=== PATIENT | female | born 1985 | race Caucasian/White ===

== ENCOUNTER → 2016-06-01 | Outpatient (REF) | payer OTHER | LOC: M LAB REF 16:13 | PROVIDERS: ATTEND Surgery | DX: N30.01 Acute cystitis with hematuria (principal) ==

== ENCOUNTER → 2016-06-06 | Outpatient (REF) | payer OTHER ==
[2016-06-06 19:54] LABS: MEAN CORPUSCULAR HGB CONC 30.6 g/dl (32.0-36.5); MEAN CORPUSCULAR VOLUME 75.3 fl (80.0-96.0); RED CELL DISTRIBUTION WIDTH 18.2 % (11.5-14.5); WHITE BLOOD COUNT 9.2 K/mm3 (4.0-10.0)
== END | disposition home or self-care (01) ==
LOC: M LABDRAW1 17:25
PROVIDERS: ATTEND Nurse Practitioner Family
DX: D64.9 Anemia, unspecified (principal)

== ENCOUNTER → 2016-09-07 | Outpatient (REF) | payer OTHER | LOC: M LAB REF 16:52 | DX: J02.9 Acute pharyngitis, unspecified (principal) ==

== ENCOUNTER → 2017-07-21 | Outpatient (REF) | payer OTHER ==
[2017-07-21 22:54] LABS: INFLUENZA A AMPLIFICATION NEGATIVE (NEGATIVE); INFLUENZA B AMPLIFICATION NEGATIVE (NEGATIVE)
== END ==
LOC: M LAB REF 21:28
DX: Z11.59 Encounter for screening for other viral diseases (principal)
CPT/HCPCS: 87502

== ENCOUNTER 2018-07-14 20:24 | Emergency (ER) | payer BC, OTHER ==
[~2018-07-14] VITALS: Ht 165.1 cm; Wt 112.3 kg
[2018-07-14 20:42] VITALS: BP 148/106
[2018-07-14] MEDS ORDERED: ACETAMINOPHEN 325 MG TAB PO ONE (21:00)
[2018-07-14 21:34] LABS: HEMOGLOBIN 13.3 g/dl (12.0-15.5); MEAN CORPUSCULAR HEMOGLOBIN 27.4 pg (27.0-33.0); MEAN CORPUSCULAR HGB CONC 32.4 g/dl (32.0-36.5); MEAN CORPUSCULAR VOLUME 84.4 fl (80.0-96.0); PLATELET COUNT, AUTOMATED 390 10^3/uL (150-450); RED BLOOD COUNT 4.86 10^6/uL (4.00-5.40); WHITE BLOOD COUNT 9.9 10^3/uL (4.0-10.0)
--- NOTE | 2018-07-14 22:40 | REPVR ---
EXAM: US First Trimester, Transabdominal EXAM DATE/TIME: 07/14/2018 9:13 PM CLINICAL HISTORY: 32 years old, female; Signs and symptoms; Lmp or gestational age (in weeks): 9w 5 d; Other: Vaginal bleeding; ; Additional info: Pelvic pain/bleeding; Lmp- 05/07/18 TECHNIQUE: Imaging protocol: Real-time transabdominal obstetrical ultrasound of the maternal pelvis and a first trimester , less than 14 weeks 0 days, with image documentation. COMPARISON: No relevant prior studies available. FINDINGS: GESTATION: Gestation: Gestational sac in the lower uterine segment with pole. Heart rate: No heartbeat is identified. BIOMETRY: Estimated gestational age: Composite age is 7 weeks 2 days. Mean sac diameter: Mean sac size is 19 mm suggesting an age of 6 weeks 6 days. Boone-Rump length: Boone-rump length of 13 mm suggesting an age of 7 weeks 4 days. MATERNAL: Uterus: The uterus measures 11.0 cm in its cephalocaudad dimension and 6.2 cm in its AP dimension transabdominal. The uterus measures 10.8 cm in its cephalocaudad dimension and 5.8 x 7.9 cm in its AP and lateral dimensions transvaginal. Cervix: Unremarkable. Right adnexa: Unremarkable. Left adnexa: Unremarkable. Intraperitoneal: No significant intraperitoneal free fluid. IMPRESSION: 1. demise with estimated age of 7 weeks 4 days. 2. Gestational sac in the lower uterine segment suggesting AB in progress. Electronically signed by: Rogerio Sarmiento On 07/14/2018 22:40:18 PM
== END 2018-07-14 22:09 | disposition home or self-care (01) ==
LOC: M ED 20:24
DX: O02.1 Missed abortion (principal); Z3A.01 Less than 8 weeks gestation of pregnancy

== ENCOUNTER → 2019-10-22 | Outpatient (REF) | payer OTHER ==
[2019-10-22 13:15] LABS: HEMATOCRIT 35.6 % (36.0-47.0); HEMOGLOBIN 10.6 g/dl (12.0-15.5); MEAN CORPUSCULAR HEMOGLOBIN 22.8 pg (27.0-33.0); MEAN CORPUSCULAR HGB CONC 29.8 g/dl (32.0-36.5); MEAN CORPUSCULAR VOLUME 76.6 fl (80.0-96.0); PLATELET COUNT, AUTOMATED 429 10^3/uL (150-450); RED BLOOD COUNT 4.65 10^6/uL (4.00-5.40); WHITE BLOOD COUNT 7.3 10^3/uL (4.0-10.0)
[2019-10-22 14:19] LABS: HCG, SERUM QUANTITATIVE 9418 MIU/ML
[2019-10-25 08:22] LABS: HEPATITIS B SURFACE ANTIGEN NEGATIVE (NEGATIVE)
[2019-10-25 08:50] LABS: HEPATITIS C VIRUS ABY INDEX 0.1 INDEX (<0.8)
[2019-10-25 08:51] LABS: HIV 1&2 SCREEN CENTAUR NEGATIVE (NEGATIVE)
== END ==
LOC: M LAB REF 12:28
PROVIDERS: ATTEND Obstetrics & Gynecology
DX: O36.80X0 Pregnancy with inconclusive fetal viability, not applicable or unspecified (principal)

== ENCOUNTER → 2019-10-28 | Outpatient (CLI) | payer OTHER ==
--- NOTE | 2019-10-28 10:22 | REP ---
REASON: Supervision of other normal . PRIORS: No pertinent priors. Within the endometrial cavity, there is an anechoic structure with increased echoes surrounding it consistent with a decidual reaction. There is no echogenic material seen within the gestational sac that would be considered consistent with a pole. No yolk sac is identified. Based on the mean gestational sac diameter, the estimated gestational age is 7 weeks 1 day. Doppler interrogation of the gestational sac shows no evidence of cardiac activity. Evaluation of the adnexal spaces showed no evidence of a gross abnormality. IMPRESSION: Early OB ultrasound as described above. Close followup is recommended to identify developing pole. Both transvesical and transvaginal was utilized.
== END ==
LOC: M WHC 08:01
PROVIDERS: ATTEND Obstetrics & Gynecology
DX: O36.80X0 Pregnancy with inconclusive fetal viability, not applicable or unspecified (principal); Z3A.01 Less than 8 weeks gestation of pregnancy

== ENCOUNTER → 2019-10-29 | Outpatient (REF) | payer OTHER | LOC: M LAB REF 12:46 | PROVIDERS: ATTEND Obstetrics & Gynecology | DX: O03.4 Incomplete spontaneous abortion without complication (principal) ==

== ENCOUNTER → 2020-06-09 | Outpatient (REF) | payer OTHER ==
[2020-06-09 17:01] LABS: HEMATOCRIT 37.8 % (36.0-47.0); HEMOGLOBIN 11.4 g/dl (12.0-15.5); MEAN CORPUSCULAR HEMOGLOBIN 23.9 pg (27.0-33.0); MEAN CORPUSCULAR HGB CONC 30.2 g/dl (32.0-36.5); MEAN CORPUSCULAR VOLUME 79.2 fl (80.0-96.0); PLATELET COUNT, AUTOMATED 424 10^3/uL (150-450); RED BLOOD COUNT 4.77 10^6/uL (4.00-5.40); WHITE BLOOD COUNT 8.8 10^3/uL (4.0-10.0)
[2020-06-09 17:27] LABS: HEMOGLOBIN A1c 5.4 %
[2020-06-09 18:18] LABS: HCG, SERUM QUANTITATIVE 13606 MIU/ML; HEPATITIS C VIRUS ABY INDEX 0.1 INDEX (<0.8); HIV 1&2 SCREEN CENTAUR NEGATIVE (NEGATIVE); PROGESTERONE 24.07 NG/ML
== END ==
LOC: M LAB REF 15:59
PROVIDERS: ATTEND Obstetrics & Gynecology
DX: O36.80X0 Pregnancy with inconclusive fetal viability, not applicable or unspecified (principal)

== ENCOUNTER → 2020-06-18 | Outpatient (CLI) | payer OTHER ==
--- NOTE | 2020-06-18 09:05 | REP ---
INDICATION: DATING AND VIABILITY. with inconclusive viability. COMPARISON: None. TECHNIQUE: Transabdominal and transvaginal sonography. FINDINGS: There is an intrauterine gestational sac containing a viable single intrauterine embryonic pole. [place]-rump length of the embryonic pole is 1.4 cm corresponding with a gestational age estimate of 7 weeks 5 days. Gestational sac is somewhat smaller than expected, mean sac diameter 6 weeks 6 days. There is a 1.6 x 1.4 cm cyst in the maternal right ovary likely corpus luteum. A 4.8 x 2.6 x 6.4 cm cystic structure is seen medially adjacent to the left ovary question hydrosalpinx versus other adnexal cyst. This is anechoic without mural nodularity. No free fluid is seen. There is also a 1.6 x 1.4 x 1.4 cm paraovarian cyst on the left. There is a 2.1 x 2.0 x 2.0 cm hypoechoic area in the uterine myometrium consistent with a fibroid. heart rate is recorded at 158 beats per minute. IMPRESSION: Viable single intrauterine gestation at 7 weeks 5 days by today's composite sonographic criteria. SNEHA by today's sonography January 30, 2021. No complication identified. Small uterine fibroid. 4.8 x 6.4 x 2.6 cm cystic lesion left adnexa. Smaller bilateral ovarian cysts are also seen. <Electronically signed by Stephen Coker > 06/18/20 [id number]
== END ==
LOC: M WHC 06:29
PROVIDERS: ATTEND Advanced Practice Midwife
DX: O36.80X0 Pregnancy with inconclusive fetal viability, not applicable or unspecified (principal); Z3A.01 Less than 8 weeks gestation of pregnancy

== ENCOUNTER → 2020-07-30 | Outpatient (CLI) | payer OTHER | LOC: M WUC 10:53 | PROVIDERS: ATTEND Advanced Practice Midwife | DX: O99.210 Obesity complicating pregnancy, unspecified trimester (principal) ==

== ENCOUNTER → 2020-11-16 | Outpatient (CLI) | payer OTHER ==
[2020-11-16 12:00] LABS: HEMATOCRIT 36.1 % (36.0-47.0); HEMOGLOBIN 11.6 g/dl (12.0-15.5); MEAN CORPUSCULAR HEMOGLOBIN 27.8 pg (27.0-33.0); MEAN CORPUSCULAR HGB CONC 32.1 g/dl (32.0-36.5); MEAN CORPUSCULAR VOLUME 86.4 fl (80.0-96.0); PLATELET COUNT, AUTOMATED 336 10^3/uL (150-450); RED BLOOD COUNT 4.18 10^6/uL (4.00-5.40); WHITE BLOOD COUNT 9.6 10^3/uL (4.0-10.0)
== END ==
LOC: M WUC 08:56
PROVIDERS: ATTEND Advanced Practice Midwife
DX: Z34.02 Encounter for supervision of normal first pregnancy, second trimester (principal); Z3A.00 Weeks of gestation of pregnancy not specified

== ENCOUNTER → 2020-12-02 | Outpatient (CLI) | payer OTHER | LOC: M LAB 07:24 | PROVIDERS: ATTEND Obstetrics & Gynecology | DX: O99.810 Abnormal glucose complicating pregnancy (principal) ==

== ENCOUNTER → 2020-12-31 | Outpatient (REF) | payer OTHER | LOC: M LAB REF 17:37 | PROVIDERS: ATTEND Obstetrics & Gynecology | DX: Z34.83 Encounter for supervision of other normal pregnancy, third trimester (principal) ==

== ENCOUNTER → 2021-01-06 | Outpatient (CLI) | payer OTHER ==
--- NOTE | 2021-01-07 18:48 | REP ---
INDICATION: PREG, SIZE/DATE DISCREPANCY 3RD TRIMESTER COMPARISON: None. TECHNIQUE: Transabdominal obstetrical ultrasound with color Doppler evaluation. FINDINGS: Examination demonstrates a single live intrauterine in cephalic presentation. motion is identified by technologist. Placenta is noted left lateral and grade 2 without evidence for placenta previa or abruption. Amniotic fluid volume is normal. Cervix measures 3.2 cm in length and appears closed.. Selected gestational age: 36 weeks 4 days with SNEHA 01/30/2021. Gestational age by current measurements 37 weeks 1 day with SNEHA 01/26/2021. FHR equals 146 beats per minute. BPD: 9.3 cm at 37 weeks 6 days HC: 33.8 cm at 38 weeks 5 days AC: 33.5 cm at 37 weeks 3 days FL: 7.0 cm at 36 weeks 0 days HL: 6.1 cm at 35 weeks 3 days HC/AC: 1.01 Estimated weight 3165 grams (74thpercentile). JOHAN: 20.4 cm (7.6-24.6) Umbilical artery SD ratio: 2.89 (1.61-3.47) IMPRESSION: Single live advanced gestation in cephalic presentation demonstrating appropriate estimated weight/growth. <Electronically signed by Jordan Velarde > 01/07/21 [id number]
== END ==
LOC: M RAD 16:09
PROVIDERS: ATTEND Obstetrics & Gynecology
DX: Z36.87 Encounter for antenatal screening for uncertain dates (principal); O26.843 Uterine size-date discrepancy, third trimester; Z3A.36 36 weeks gestation of pregnancy

== ENCOUNTER → 2021-01-07 | Outpatient (REF) | payer OTHER ==
[2021-01-07 20:01] LABS: HEMATOCRIT 34.6 % (36.0-47.0); HEMOGLOBIN 11.4 g/dl (12.0-15.5); MEAN CORPUSCULAR HEMOGLOBIN 27.9 pg (27.0-33.0); MEAN CORPUSCULAR HGB CONC 32.9 g/dl (32.0-36.5); MEAN CORPUSCULAR VOLUME 84.8 fl (80.0-96.0); PLATELET COUNT, AUTOMATED 323 10^3/uL (150-450); RED BLOOD COUNT 4.08 10^6/uL (4.00-5.40)
[2021-01-07 20:23] LABS: ALT/SGPT 14 U/L (12-78); BILIRUBIN,TOTAL 0.2 MG/DL (0.2-1.0); CREATININE FOR GFR 0.64 MG/DL (0.55-1.30); GLOMERULAR FILTRATION RATE > 60.0 (>60); LDH LACTATE DEHYDROGENASE 165 U/L (84-246)
== END ==
LOC: M LAB REF 18:58
PROVIDERS: ATTEND Obstetrics & Gynecology
DX: O14.90 Unspecified pre-eclampsia, unspecified trimester (principal)

== ENCOUNTER → 2021-01-08 | Outpatient (REF) | payer OTHER ==
[~2021-01-08] MED LIST: IBUP80TA PO; PERCOCET PO; PRENTAB9 PO
[2021-01-08 14:42] LABS: CREATININE, URINE 72.5 MG/DL; URINE TOTAL PROTEIN 16.5 MG/DL (0-12)
[2021-01-08 20:25] LABS: CREATININE 24 HOUR, URINE 1377.5 MG/24HR (600-1800); TOTAL PROTEIN 24 HOUR URINE 313.5 MG/24HR (50-150)
== END ==
LOC: M LAB REF 13:48
PROVIDERS: ATTEND Obstetrics & Gynecology
DX: O14.90 Unspecified pre-eclampsia, unspecified trimester (principal)

== ENCOUNTER 2021-01-11 14:42 | Inpatient (IN) | payer OTHER ==
[~2021-01-11] VITALS: Ht 165.1 cm; Wt 131.1 kg
[2021-01-11] VITALS (11 sets, daily range): BP systolic 139–184; BP diastolic 77–114
[2021-01-11] MEDS: miSOPROStol 50MCG 1/2 TABLET PO SCH ×2 (00:12→19:57)
[2021-01-11] MEDS ORDERED: HOME MED LIST COMPLETE! XX SCH (14:55)
[2021-01-11] MEDS ORDERED: PRENTAB9 PO (15:18)
[2021-01-11] MEDS ORDERED: PENICILLIN G POTASSIUM IV 5 MU in D5W MINI-BAG PLUS 100 ML IV STA (15:32)
[2021-01-11] MEDS ORDERED: TRANEXAMIC ACID INJection 1,000 MG in NS 100 ML IV PRN (15:35)
[2021-01-11] MEDS ORDERED: LIDOCAINE 1% MDV 20ML VIAL INFIL PRN (15:35)
[2021-01-11] MEDS ORDERED: OXYTOCIN DRIP 30 UNITS in IV 1 EA IV PRN (15:35)
[2021-01-11] MEDS ORDERED: CARBOPROST TROMETHAMINE 250 MCG/ML AMP IM PRN (15:35)
--- NOTE | 2021-01-11 15:39 | HPEPDOC ---
Obstetrical History & Physical General Date of Admission Jan 11, 2021 at 14:42 Primary Care Physician: DARLINE MOODY CNM History of Present Illness Hortencia is a 35 y.o. female who is a that presents to L & D for IOL at 37 2/7 weeks due to preeclampsia. SNEHA of 01/30/2021 based off of her LMP and consistent with first trimester U/S. No complaints of preeclamptic symtpoms, LOF, decreased movement, vaginal bleeding, or regular or painful uterine contractions. care adequate and received through [facility]. complicated by preeclampsia and morbid obesity. Chief Complaint: Pre-eclamsia, Induction of labor Information Provided By: Patient Age: 35 : 4 Term: 0 Pre-term: 0 Abortions: 3 Livin Care Care: Good Care Dating Final EDC: Jan 30, 2021 Final EDC by: LMP, 1st trimester (US) LMP: Apr 01, 2020 EGA at Admission: 37.2 Antepartum Course Diagnos(e)s preeclampsia Height (inches): 65 Pre- weight (lbs.): 269 Past Medical History OPERATIONS SPECIALIST History: Spontaneous , Uterine fibroids Past Medical History Medical History Morbid obesity Surgical History: Other (left tib/fib fx and repair, age 22) Family History Significant Family History: No pertinent family hx, Noncontributory Family History M & D alive and well, denies any pertinent family hx Social History Marital Status: Single Family situation: Spouse/partner home Psychosocial History: No pertinent psych hx * Smoker: non-smoker Alcohol: rarely (no use with ) Drugs: denies Abuse Violence Screening Have you been hit/kicked/slapp: No Have you been sexually assault: No Imunizations Tdap status: needs Allergies Coded Allergies: No Known Drug Allergies (Verified Allergy, Unknown, 01/11/21) Medications Scheduled No.137/Iron/Folic Acd ( Vitamin Tablet) 1 Each Tablet, 1 TAB PO DAILY Physical Examination Physical Examination GENERAL: Alert and oriented times three. ABDOMEN: Gravid and non-tender to touch. FETUS: Is vertex (VTX) by sterile vaginal examination (SVE), fetus is vertex (VTX) by Ramon. EFW 7 lbs HEART RATE: Regular rate and rhythm. LUNGS: Clear to auscultation (CTA) bilaterally. EXTREMITIES: 1-2+ pitting edema i feet and legs. No clonus. Deep tendon reflexes (DTRs) +2 Vital Signs/I&O Vital Signs Label Value Date Time Patient Temperature 98.3 degrees F 01/11/21 1514 Temperature Source Temporal 01/11/21 1514 Pulse 96 01/11/21 1514 Respiratory Rate 18 bpm 01/11/21 1514 Blood Pressure Assessment 142/100 (114) 01/11/21 1514 Source Automatic Cuff (NIBP) Laboratory Data [facility] Laboratory Tests 2 01/11/21 15:02: Serology Scanned Report Hepatitis B Testing CBC/BMP Item Value Date Time White Blood Count 10.9 10^3/uL H 01/11/21 1653 Red Blood Count 4.14 10^6/uL 01/11/21 1653 Hemoglobin 11.5 g/dl L 01/11/21 1653 Hematocrit 34.9 % L 01/11/21 1653 Mean Corpuscular Volume 84.3 fl 01/11/21 1653 Mean Corpuscular Hemoglobin 27.8 pg 01/11/21 1653 Mean Corpuscular Hemoglobin Concent 33.0 g/dl 01/11/21 1653 Red Cell Distribution Width 14.6 % H 01/11/21 1653 Platelet Count 296 10^3/uL 01/11/21 1653 Urine Culture: No Growth Pertinent Laboratoy Data Blood Type: A+ RBC Antibody Screen: Negative HIV: Negative Hepatitis B: Negative Hepatitis C: Negative Rapid Plasma Reagin: Nonreactive Rubella: Immune Chlamydia/Gonorrhea: Negative Group B Streptococcus: Positive Glucose Tolerance Test: 153 Anatomy Ultrasound Ultrasound Date: Jun 18, 2020 Placenta Location: Posterior Normal Anatomy: Yes Placenta Previa: No Other Ultrasounds 01/06/21 EFW 3165 (74th percentile), placenta noted left lateral, JOHAN 20.4cm Steroid Therapy Steroid Therapy: No Vaginal Examination Dilation: Fingertip Effacement: 50% Station: -3 Cervical Consistency: Soft Cervical Position: Posterior Presentation: Cephalic presentation Assessment Heart Rate (FHR): 140 Variability: Moderate Accelerations: Positive Decelerations: None Tocometer Contractions: Yes Frequency: irregular Multi-drug resistant Organism: No history of MDRO Assessment/Plan Assessment IUP at 37.2 GBS positive Category 1 FHR tracing Morbid obesity Preeclampsia Plan Admit and orient to L & D. Risks, benefits, and alternatives have been discussed with patient and she desires to proceed with induction of labor. OOB ad tyson Diet: as tolerated, clears when in active labor. Group B Streptococcus (GBS) Positive. Start antibiotics with cervical change. Labs and intravenous (IV) per unit protocol. Counseled on Cytotec, nguyễn bulb, and IV Pitocin for induction of labor. Anesthesia consult per patient's request. Continue to monitor for severe range blood pressures or symptoms of preeclampsia. Anticipate cervical ripening. C-S as appropriate. DARLINE MOODY CNM Jan 11, 2021 15:39
[2021-01-11 17:11] LABS: HEMATOCRIT 34.9 % (36.0-47.0); HEMOGLOBIN 11.5 g/dl (12.0-15.5); MEAN CORPUSCULAR HEMOGLOBIN 27.8 pg (27.0-33.0); MEAN CORPUSCULAR VOLUME 84.3 fl (80.0-96.0); PLATELET COUNT, AUTOMATED 296 10^3/uL (150-450); RED BLOOD COUNT 4.14 10^6/uL (4.00-5.40); WHITE BLOOD COUNT 10.9 10^3/uL (4.0-10.0)
[2021-01-11 17:33] LABS: ALT/SGPT 14 U/L (12-78); BILIRUBIN,TOTAL 0.2 MG/DL (0.2-1.0); CREATININE FOR GFR 0.65 MG/DL (0.55-1.30); GLOMERULAR FILTRATION RATE > 60.0 (>60); LDH LACTATE DEHYDROGENASE 179 U/L (84-246); URIC ACID 5.1 MG/DL (2.6-6.0)
[2021-01-11 17:44] LABS: CREATININE,RANDOM URINE 52.8 MG/DL; TOTAL PROTEIN,RANDOM URINE 13.8 MG/DL (0.0-12.0)
[2021-01-11] MEDS ORDERED: PENICILLIN G POTASSIUM IV 2.5 MU in IV 1 EA IV SCH (19:35)
[2021-01-11] MEDS ORDERED: LABETALOL 100MG/20ML VIAL As Ordered ONE (20:50)
[2021-01-11] MEDS ORDERED: LABETALOL 100MG/20ML VIAL IV STA (20:51)
[2021-01-11] MEDS ORDERED: LABETALOL 200 MG TAB PO SCH (21:00)
[2021-01-12] VITALS (10 sets, daily range): BP systolic 108–148; BP diastolic 64–93
[2021-01-12] MEDS: miSOPROStol 50MCG 1/2 TABLET PO SCH (04:09)
[2021-01-12] MEDS ORDERED: PROMETHAZINE INJ 25 MG/ML VIAL (J2550) IV PRN (04:35)
[2021-01-12] MEDS ORDERED: BUTORPHANOL 2 MG/ML INJ (J0595) IV ONE (04:35)
[2021-01-12 08:44] LABS: HEMATOCRIT 34.7 % (36.0-47.0); HEMOGLOBIN 11.3 g/dl (12.0-15.5); MEAN CORPUSCULAR HEMOGLOBIN 27.8 pg (27.0-33.0); MEAN CORPUSCULAR HGB CONC 32.6 g/dl (32.0-36.5); MEAN CORPUSCULAR VOLUME 85.5 fl (80.0-96.0); PLATELET COUNT, AUTOMATED 299 10^3/uL (150-450); RED BLOOD COUNT 4.06 10^6/uL (4.00-5.40)
[2021-01-12] MEDS ORDERED: INFLUENZA QUADRIVALENT PF VACCINE 0.5ML SYRINGE IM ONE (09:00)
[2021-01-12] MEDS ORDERED: LACTATED RINGER'S 1000 ML IV STA (09:13)
[2021-01-12] MEDS ORDERED: LR 1,000 ML IV SCH ×2 (09:15→11:10)
[2021-01-12] MEDS ORDERED: ceFAZolin SOD 2 GM in IV 1 EA IV ONE (09:15)
[2021-01-12] MEDS ORDERED: MORPHINE PRES-FREE INJ 10 MG/10 ML VIAL (J2274) As Ordered ONE (09:23)
[2021-01-12] MEDS ORDERED: ONDANSETRON 4MG/2ML VIAL As Ordered ONE (09:23)
[2021-01-12] MEDS ORDERED: OXYTOCIN 30 UNITS IN 0.9% NaCl 500ML IV BAG (J2590) As Ordered ONE ×2 (09:24→11:14)
[2021-01-12] MEDS: ceFAZolin SOD 1 GM in D5W MINI-BAG PLUS 50 ML IV SCH ×2 (09:29→09:31)
[2021-01-12] MEDS ORDERED: BICITRA 30ML SOLN UDC PO ONE (09:30)
[2021-01-12] MEDS ORDERED: NALBUPHINE HCL 10 MG/ML AMP (J2300) IV PRN (09:45)
[2021-01-12] MEDS ORDERED: METOCLOPRAMIDE INJ 10MG/2ML VIAL (J2765 PER 1) IV PRN ×2 (09:45→11:10)
[2021-01-12] MEDS ORDERED: NALOXONE INJ 0.4MG/1ML VIAL (J2310 PER 1MG) IV PRN ×2 (09:45)
[2021-01-12] MEDS ORDERED: diphenhydrAMINE 50MG/ML VIAL (J1200) IV PRN (09:45)
[2021-01-12] MEDS ORDERED: ONDANSETRON 4MG/2ML VIAL IV PRN ×2 (09:45→11:10)
[2021-01-12] MEDS ORDERED: ePHEDrine SULFATE 25 MG/5 ML(5MG/ML) SYRINGE As Ordered ONE (09:47)
[2021-01-12] MEDS ORDERED: KETOROLAC 60MG 2ML VIAL As Ordered ONE ×2 (09:49→10:21)
[2021-01-12 10:23] LABS: CORD GAS ABE A -4.5; CORD GAS HCO3 A 25.3 MEQ/L; CORD GAS PCO2 A 65.5 mmHg; CORD GAS PH A 7.204 UNITS; CORD GAS PO2 A 24.2 mmHg; CORD GAS SBC A 19.5 MEQ/L; CORD GAS TCO2 A 27.3 MEQ/L
[2021-01-12 10:25] LABS: CORD GAS ABE V -2.4; CORD GAS HCO3 V 24.2 MEQ/L; CORD GAS O2 SAT V 66.8 %; CORD GAS PCO2 V 47.7 mmHg; CORD GAS PH V 7.323 UNITS; CORD GAS PO2 V 27.3 mmHg; CORD GAS SBC V 21.6 MEQ/L; CORD GAS TCO2 V 25.7 MEQ/L
[2021-01-12] MEDS ORDERED: RHOGAM 300 MCG (1500 IU) INJ (J2790) IM SCH (10:55)
[2021-01-12] MEDS ORDERED: PERCOCET 5MG/325MG TAB PO PRN ×3 (10:55→11:10)
[2021-01-12] MEDS ORDERED: MEASLES,MUMPS,RUBELLA VACCINE INJ (MMR-II) (90707) SC SCH (10:55)
[2021-01-12] MEDS ORDERED: OXYTOCIN DRIP 30 UNITS in IV 1 EA IV SCH (10:55)
[2021-01-12] MEDS ORDERED: DOCUSATE SODIUM 100MG CAPSULE PO PRN (10:55)
[2021-01-12] MEDS ORDERED: SIMETHICONE 80MG CHEW TAB PO PRN (10:55)
[2021-01-12] MEDS ORDERED: MEPERIDINE INJ 25 MG/ML VIAL (J2175) IV PRN (11:10)
[2021-01-12] MEDS ORDERED: fentaNYL 100 MCG/2 ML INJECTION (J3010) IV PRN (11:10)
--- NOTE | 2021-01-12 11:47 | ROOPDOC ---
[facility] Report Of Operation Report of Operation DATE OF PROCEDURE: 01/12/21 Report of operation Preoperative diagnosis: 37 2/7 weeks, preeclampsia, category 2 heart rate tracing remote from delivery. Postoperative diagnosis: Same as well as left ovarian cystadenoma Procedure: Primary low transverse section and left ovarian cystectomy. Surgeon: Maryam Foster M.D. EBL: 500 ml. Urine output: 100 mL's. Findings: 6 lbs. 13 oz. female , 's 9 and 9 g normal uterus and fallopian tubes. 7 cm serous cystadenoma of the left ovary. Normal right ovary. Operative summary: Patient taken to the operating room where spinal anesthesia was induced. She was prepped and draped in a sterile fashion in the supine position. A Hamilton catheter was placed. A Pfannenstiel skin incision was made with scalpel. Fascia was incised and extended bilaterally. The fascia was from the rectus muscles. The peritoneal cavity was entered. A Mobius retractor was placed. A bladder flap was created. A curvilinear incision was made in lower uterine segment until Clear fluid was noted. The incision was extended manually. The infant was delivered from the vertex position without difficulty. Cord was double clamped and cut. The infant was handed waiting nurses. . The placenta was expressed. Uterus was closed with O-Vicryl in a running locked fashion. A second imbricating layer of Vicryl was placed. Attention was turned to the left ovary. Left ovary was grasped with a Destiny clamp. The left ovarian cyst was noted. Patient was verbally asked about removal of the cyst which she agreed to. Incision was made in the capsule overlying the cyst. The cyst was dissected off the ovary with combination of blunt and sharp dissection. The cyst was removed in its entirety. The base of the cyst was sutured with a [id number] suture of 3-0 Vicryl. The remaining ovarian capsule was closed with 3-0 Vicryl in a running fashion. Good hemostasis was noted. Peritoneum was closed with 2-0 Vicryl a running fashion. Fascia was closed with 0 Vicryl in running fashion. Skin was closed 4-0 Monocryl subcuticular sutures. Sponge, instrument and needle counts were correct. MARYAM FOSTER MD Jan 12, 2021 11:47
[2021-01-12] MEDS: PRENATAL VITAMINS CHEWABLE TABLET PO SCH (13:11)
[2021-01-12] MEDS: KETOROLAC 30 MG/ML 1ML VIAL IV SCH ×2 (16:48→21:55)
[2021-01-12] MEDS: LR 1,000 ML IV SCH ×2 (18:26→22:50)
[2021-01-13] VITALS (7 sets, daily range): BP systolic 127–158; BP diastolic 74–92
[2021-01-13] MEDS: KETOROLAC 30 MG/ML 1ML VIAL IV SCH (04:23)
[2021-01-13 07:23] LABS: HEMATOCRIT 29.1 % (36.0-47.0); MEAN CORPUSCULAR HEMOGLOBIN 27.7 pg (27.0-33.0); MEAN CORPUSCULAR VOLUME 86.6 fl (80.0-96.0); PLATELET COUNT, AUTOMATED 240 10^3/uL (150-450); RED BLOOD COUNT 3.36 10^6/uL (4.00-5.40); WHITE BLOOD COUNT 12.6 10^3/uL (4.0-10.0)
[2021-01-13 07:34] LABS: HEMOGLOBIN 9.3 g/dl (12.0-15.5)
[2021-01-13] MEDS: PRENATAL VITAMINS CHEWABLE TABLET PO SCH (07:52)
[2021-01-13] MEDS ORDERED: INFLUENZA QUADRIVALENT PF VACCINE 0.5ML SYRINGE IM ONE (09:00)
[2021-01-13] MEDS ORDERED: BOOSTRIX/ADACEL VACCINE (DIPHTH/PERTUSS/ACELL/TETANUS) 0.5ML SYR IM ONE (12:00)
[2021-01-13] MEDS: IBUPROFEN 800 MG TAB PO SCH ×2 (12:06→20:03)
[2021-01-14 02:13] VITALS: BP 154/83
[2021-01-14] MEDS: IBUPROFEN 800 MG TAB PO SCH ×2 (03:45→11:56)
[2021-01-14 06:12] VITALS: BP 165/91
[2021-01-14] MEDS: PRENATAL VITAMINS CHEWABLE TABLET PO SCH (09:33)
[2021-01-14 12:39] VITALS: BP 150/78
[2021-01-14] MEDS ORDERED: IBUP80TA PO (13:01)
[2021-01-14] MEDS ORDERED: PERCOCET PO (13:01)
--- NOTE | 2021-01-14 13:13 | DS.PDOC ---
Discharge Summary General Date of Admission Jan 11, 2021 at 14:42 Date of Discharge 01/14/21 Attending Physician: MARYAM FOSTER MD Discharge Summary PROCEDURES PERFORMED DURING STAY: 1. Spinal anesthesia 2. section 3. Left ovarian cystectomy. ADMITTING DIAGNOSES: 1. Preeclampsia. DISCHARGE DIAGNOSES: 1. Preeclampsia 2. Persistent category 2 heart rate tracing remote from delivery 3. Left serous cystadenoma. COMPLICATIONS/CHIEF COMPLAINT: Induction. HISTORY OF PRESENT ILLNESS: Mrs. Rudolph presented for induction of labor secondary to preeclampsia. There was a persistent category heart rate tracing and she was remote for delivery and decision was made to proceed with section she underwent a section with a left ovarian cystectomy, productive of live born female a Apgars were 9 and 9 weight was 3370 g or 6 lbs. 13 oz. Estimated blood loss 500ml. Patient did well postoperatively by postoperative day #2 had met all discharge criteria is as discharged home in stable condition DISCHARGE MEDICATIONS: Please see below. ALLERGIES: Please see below. PHYSICAL EXAMINATION ON DISCHARGE: VITAL SIGNS: Please see below. GENERAL: No distress HEENT: WNL ABDOMINAL EXAMINATION: Fundus firm. Dressing intact EXTREMITIES: Equal strength and motion SKIN: Intact NEUROLOGICAL EXAMINATION: Grossly intact PSYCHIATRIC EXAMINATION: Appropriate LABORATORY DATA: Please see below. PROGNOSIS: Good ACTIVITY: As tolerated. Pelvic rest. DIET: As tolerated DISCHARGE PLAN: Discharge today. Remove dressing day 5 DISPOSITION: Home DISCHARGE INSTRUCTIONS: 1. Pelvic rest. Continue vitamins. Medications as ordered. Call with fever, nausea, vomiting, chills, foul lochia, wound exudate or evidence infection. RTO early next week for blood pressure check. DISCHARGE CONDITION: Stable Vital Signs/I&Os Vital Signs Date Time Temp Pulse Resp B/P (MAP) Pulse Ox O2 Delivery O2 Flow Rate FiO2 01/14/21 12:39 150/78 (102) 01/14/21 06:12 97.6 88 18 99 01/13/21 06:00 Room Air Discharge Medications Scheduled Ibuprofen (Ibuprofen) 800 Mg Tablet, 800 MG PO Q8H No.137/Iron/Folic Acd ( Vitamin Tablet) 1 Each Tablet, 1 TAB PO DAILY, (Reported) Scheduled PRN Oxycodone/Acetaminophen (Oxycodone-Acetaminophen 5-325) 1 Each Tablet, 1 TAB PO Q4H PRN for MODERATE PAIN (PS 5-7) Allergies Coded Allergies: No Known Drug Allergies (Verified Allergy, Unknown, 01/11/21) LOVELY URIAS MD. Jan 14, 2021 13:13
== END 2021-01-14 13:25 | disposition home or self-care (01) | DRG 540 ==
LOC: M LDI 14:42 → M OBS 01-12 13:04
PROVIDERS: ADMIT Advanced Practice Midwife; ATTEND Advanced Practice Midwife
PROC: 3E0P7GC Introduction of Other Therapeutic Substance into Female Reproductive, Via Natural or Artificial Opening (ICD-10-PCS; 2021-01-11)
PROC: 0UB10ZZ Excision of Left Ovary, Open Approach (ICD-10-PCS; 2021-01-12)
PROC: 10D00Z1 Extraction of Products of Conception, Low, Open Approach (ICD-10-PCS; principal; 2021-01-12 09:41)
DX: O14.94 Unspecified pre-eclampsia, complicating childbirth (principal); Z3A.37 37 weeks gestation of pregnancy; O99.214 Obesity complicating childbirth; E66.01 Morbid (severe) obesity due to excess calories; O99.824 Streptococcus B carrier state complicating childbirth; O76 Abnormality in fetal heart rate and rhythm complicating labor and delivery; D27.1 Benign neoplasm of left ovary; Z37.0 Single live birth; O26.893 Other specified pregnancy related conditions, third trimester

== ENCOUNTER → 2022-05-03 | Outpatient (REF) | payer OTHER | LOC: M LAB REF 22:06 | PROVIDERS: ATTEND Physician Assistant | DX: R07.0 Pain in throat (principal) ==